=== PATIENT | male | born 1975 | race Asian ===

== ENCOUNTER 2018-02-24 11:35 | Emergency (ER) | payer MEDICAID ==
[~2018-02-24] VITALS: Ht 160 cm; Wt 62.9 kg
[2018-02-24] MEDS ORDERED: ALBUTEROL SULFATE 2.5 MG/3 ML NEBU. NEB ONE (13:30)
--- NOTE | 2018-02-24 14:08 | PHYS DOC ---
Past Medical History Past Medical History: No Pertinent History Past Surgical History: No Surgical History Alcohol Use: None Drug Use: None Adult General Chief Complaint Chief Complaint: COUGH HPI HPI Patient is a 42 year old male who presents with a cough, cold symptoms and fever 2 days. The patient states that he was in cold air and thinks that he got chilled. He states that when he is outside in the heat he feels like he is still chilled. He has been having a runny nose and sinus drainage. He denies earaches or sore throat. He has been having a headache with his symptoms. They have not been using [id number] medications for treatment. He is here with an analyst food and beverage. Review of Systems Review of Systems Constitutional: Denies fever or chills [] Eyes: Denies change in visual acuity, redness, or eye pain [] HENT: See history of present illness Respiratory: See history of present illness Cardiovascular: No additional information not addressed in HPI [] GI: Denies abdominal pain, nausea, vomiting, bloody stools or diarrhea [] : Denies dysuria or hematuria [] Musculoskeletal: Denies back pain or joint pain [] Integument: Denies rash or skin lesions [] Neurologic: See history of present illness Endocrine: Denies polyuria or polydipsia [] All other systems were reviewed and found to be within normal limits, except as documented in this note. Current Medications Current Medications Current Medications Medications (Trade) Dose Ordered Sig/Gracia Start Time Stop Time Status Last Admin Dose Admin Albuterol Sulfate (Ventolin Neb Soln) 2.5 mg 1X ONCE 02/24/18 13:30 02/24/18 13:31 DC 02/24/18 13:46 2.5 MG Ibuprofen (Motrin) 800 mg 1X ONCE 02/24/18 14:45 02/24/18 14:46 DC 02/24/18 14:51 800 MG Allergies Allergies Allergies Coded Allergies Type Severity Reaction Last Updated Verified No Known Drug Allergies 02/24/18 No Physical Exam Physical Exam Constitutional: Well developed, well nourished, no acute distress, non-toxic appearance. [] HENT: Normocephalic, atraumatic, bilateral tympanic membranes normal, oropharynx moist and slightly erythematous, no oral exudates, mass drainage noted to back of throat Eyes: PERRLA, EOMI, conjunctiva normal, no discharge. [] Neck: Normal range of motion, no tenderness, supple, no stridor. [] Cardiovascular:Heart rate regular rhythm, no murmur [] Lungs & Thorax: Bilateral breath sounds decreased at bilateral bases Abdomen: Bowel sounds normal, soft, no tenderness, no masses, no pulsatile masses. [] Skin: Warm, dry, no erythema, no rash. [] Neurologic: Alert and oriented X 3, normal motor function, normal sensory function, no focal deficits noted, cranial nerves II through XII are grossly intact, no meningismus. [] Psychologic: Affect normal, judgement normal, mood normal. [] Current Patient Data Vital Signs Vital Signs Date Time Temp Pulse Resp B/P (MAP) Pulse Ox O2 Delivery O2 Flow Rate FiO2 02/24/18 13:47 98 Room Air 02/24/18 12:35 98.0 90 20 125/74 (91) 98.0 EKG EKG [] Radiology/Procedures Radiology/Procedures []PATIENT: OBDULIA ROBCCOUNT: [id number]#: [id number] : 1975 LOCATION: ER AGE: 42 SEX: M EXAM STATUS: REG ER ORD. PHYSICIAN: JOSE ARMANDO ZHANG APRN REASON: headache x 2 days PROCEDURE: CT HEAD WO CONTRAST EXAM: Head CT without contrast. HISTORY: Headache. TECHNIQUE: Computed tomographic images of the head were obtained without contrast. *One or more of the following individualized dose reduction techniques were utilized for this examination: 1. Automated exposure control. 2. Adjustment of the mA and/or kV according to patient size. 3. Use of iterative reconstruction technique. COMPARISON: None. FINDINGS: There is no acute or subacute extra-axial or intraparenchymal hemorrhage. There is no mass effect or midline shift. There is no hydrocephalus. The isaacs-white matter differentiation pattern is intact. The visualized portions of the orbits, paranasal sinuses and mastoid air cells are unremarkable. No suspicious calvarial lesion is seen. IMPRESSION: No acute intracranial findings. Electronically signed by: Sigrid Moise MD (02/24/2018 3:16 PM) [facility] DICTATED and SIGNED BY: SIGRID MOISE MD DATE: 02/24/18 1516 Course & Med Decision Making Course & Med Decision Making Pertinent Labs and Imaging studies reviewed. (See chart for details) []The patient is receiving an albuterol treatment in the emergency department. He is afebrile here. The patient was given 800 mg of ibuprofen to treat his headache. Head CT was negative for an acute cause of his headache. He does not have meningeal signs. He will be discharged home to follow up with his primary care provider or to return to the emergency department if worsening. They're in agreement with this plan. Dragon Disclaimer Dragon Disclaimer This electronic medical record was generated, in whole or in part, using a voice recognition dictation system. Departure Departure Impression: Primary Impression: Upper respiratory infection Additional Impression: Headache Disposition: HOME, SELF-CARE Condition: STABLE Referrals: NO PCP (PCP) Patient Instructions: General Headache Without Cause, Upper Respiratory Infection, Adult Additional Instructions: Take the medication as directed. Follow-up with your primary care provider in 3 days for recheck. If worsening please return to the emergency department. You may take ibuprofen or Tylenol for your headache. You may use [id number] cough and cold medication for your upper respiratory infection. Scripts Albuterol Sulfate (PROAIR HFA INHALER) 8.5 Gm Hfa.aer.ad 1 PUFF INH PRN Q6HRS PRN for SHORTNESS OF BREATH, #1 INHALER 0 Refills Prov: JOSE ARMANDO ZHANG APRN 02/24/18 Problem Qualifiers JOSE ARMANDO ZHANG APRN Feb 24, 2018 14:08
[2018-02-24] MEDS ORDERED: IBUPROFEN 800 MG TABLET. PO ONE (14:45)
--- NOTE | 2018-02-24 15:19 | RAD ---
EXAM: Head CT without contrast. HISTORY: Headache. TECHNIQUE: Computed tomographic images of the head were obtained without contrast. *One or more of the following individualized dose reduction techniques were utilized for this examination: 1. Automated exposure control. 2. Adjustment of the mA and/or kV according to patient size. 3. Use of iterative reconstruction technique. COMPARISON: None. FINDINGS: There is no acute or subacute extra-axial or intraparenchymal hemorrhage. There is no mass effect or midline shift. There is no hydrocephalus. The isaacs-white matter differentiation pattern is intact. The visualized portions of the orbits, paranasal sinuses and mastoid air cells are unremarkable. No suspicious calvarial lesion is seen. IMPRESSION: No acute intracranial findings. Electronically signed by: Sigrid Castillo MD (02/24/2018 3:16 PM) [facility]
[2018-02-24 15:30] VITALS: BP 122/66
[2018-02-24] MEDS ORDERED: PROAIR HFA8.5 GM INH (15:41)
== END 2018-02-24 15:55 | disposition home or self-care (01) ==
LOC: ER 11:35
DX: J06.9 Acute upper respiratory infection, unspecified (principal); R51 Headache
CPT/HCPCS: 70450; 99284; J7613